=== PATIENT | male | born 1980 | race Hispanic/Latino ===

== ENCOUNTER 2016-09-13 07:17 | Emergency (ER) | payer BC, SELFPAY ==
[2016-09-13] MEDS ORDERED: Acetaminophen 500 MG TAB ONE (07:37)
== END 2016-09-13 07:42 | disposition home or self-care (01) ==
LOC: NAV ERS 07:17
DX: H60.92 Unspecified otitis externa, left ear (principal); E66.9 Obesity, unspecified; F17.210 Nicotine dependence, cigarettes, uncomplicated
CPT/HCPCS: 99282

== ENCOUNTER 2019-05-04 15:41 | Emergency (ER) | payer SELFPAY ==
[2019-05-04 16:15] LABS: Lactic Acid 1.6 mmol/L (0.5-2.2)
[2019-05-04 16:22] LABS: ALT (SGPT) 74 U/L (8-55); AST (SGOT) 92 U/L (5-34); Albumin 2.5 g/dL (3.5-5.0); Alkaline Phosphatase 93 U/L (40-110); Anion Gap 15 mmol/L (10-20); BUN (Urea Nitrogen) 19 mg/dL (8.9-20.6); Bilirubin, Total 2.9 mg/dL (0.2-1.2); Calc. Creatinine Clearance 0 mL/min (70-130); Calcium 8.1 mg/dL (7.8-10.44); Carbon Dioxide 20 mmol/L (22-29); Chloride 102 mmol/L (98-107); Estimated GFR-MDRD Greater than 90; Globulin 4.3 g/dL (2.4-3.5); Glucose 83 mg/dL (70-105); Potassium 3.8 mmol/L (3.5-5.1); Protein, Total 6.8 g/dL (6.0-8.3); Sodium 133 mmol/L (136-145)
[2019-05-04] MEDS ORDERED: cefTRIAXone\\ROCEPHIN 2 GM VIAL ONE (16:30)
[2019-05-04] MEDS ORDERED: Sodium Chloride 0.9% 100 ML ONE (16:30)
[2019-05-04 16:38] LABS: Eosinophils 2 % (0-10); Hemoglobin 14.3 g/dL (14.0-18.0); Lymphocytes 23 % (21-51); MDiff Complete? YES; Mean Corpuscular HGB CONC 33.6 g/dL (32.0-36.0); Mean Corpuscular Hemoglobin 31.7 pg (27.0-31.0); Mean Corpuscular Volume 94.5 fL (78.0-98.0); Mean Platelet Volume 11.2 fL (7.4-10.4); Monocytes 4 % (0-10); Neutrophil 69 % (42-75); Platelet Count 112 thou/uL (130-400); Platelet Morphology Comment Appears Adequate; RBC Distribution Width 13.2 % (11.5-14.5); Reactive Lymphocytes 2 % (0-10); Red Blood Cell (RBC) Count 4.52 mill/uL (4.70-6.10); White Blood Cell (WBC) Count 11.6 thou/uL (4.8-10.8)
--- NOTE | 2019-05-04 16:39 | RAD ---
PORTABLE CHEST: 05/04/19 HISTORY: Chest pain. Fever. Heart size is enlarged. Lungs appear clear of any infiltrative process. Thee overlying soft tissue de grades detail, particularly in the retrocardiac region. IMPRESSION: Cardiomegaly. No acute findings. POS: [facility]
[2019-05-04 16:49] LABS: Base Excess-Venous 0.7 mmol/L (-2.0 to 3.0); Bicarbonate (HCO3v) 25.1 mmol/L (22.0-28.0); CO2 Tension (PvCO2) 38.6 mmHg (40.0-50.0); Calcium, Ionized 1.07 mmol/L (See Comments:); Chloride 98 mmol/L (98-107); Hemoglobin - Calc 14.9 g/dL (14.0-18.0); Potassium 3.7 mmol/L (3.5-5.1); Sodium 135 mmol/L (138-145); T. Carbon Dioxide 26.2 mmol/L (22.0-28.0); vO2 Saturation-calc 61.5 % (60.0-85.0)
[2019-05-04] MEDS ORDERED: Azithromycin 500 MG VIAL ONE (16:58)
[2019-05-04] MEDS ORDERED: Sodium Chloride 0.9% 250 ML 250 ML ONE (16:58)
[2019-05-04] MEDS ORDERED: Acetaminophen 500 MG TAB ONE (17:02)
[2019-05-04] MEDS ORDERED: Ketorolac Tromethamine 30 MG/ML VIAL ONE (19:49)
[2019-05-04 19:57] LABS: Bilirubin Moderate (Negative); Blood, Urine Negative (Negative); Clarity Clear (Clear); Glucose, Urine (Dipstick) Negative (Negative); Leukocyte Negative (Negative); Nitrite Negative (Negative); Protein, Urine (Dipstick) Negative (Neg-Trace)
== END 2019-05-04 21:10 | disposition short-term general hospital (02) ==
LOC: NAV ERS 15:41
DX: J18.9 Pneumonia, unspecified organism (principal); E88.09 Other disorders of plasma-protein metabolism, not elsewhere classified; R17 Unspecified jaundice; Z87.891 Personal history of nicotine dependence; E66.9 Obesity, unspecified
CPT/HCPCS: 36415; 71045; 80053; 81003; 82330; 82803; 83605; 83880; 85025; 87040; 87149; 87804; 93005; 96361; 96365; 96374; 96375; J0456; J0696; J1885; J3490; J7050